=== PATIENT | male | born 1970 | race Caucasian/White ===

== ENCOUNTER 2020-03-26 21:46 | Emergency (ER) | payer BC ==
[2020-03-26] MEDS ORDERED: Lidocaine 2% 5 ML SDV IV ONE (21:47)
[2020-03-26] MEDS ORDERED: Propofol 200 MG/20 ML SDV IV ONE (21:47)
[2020-03-26] MEDS ORDERED: Diltiazem 25 MG/5 ML SDV IVPUSH ONE ×3 (22:15→22:30)
--- NOTE | 2020-03-26 22:18 | EDM.PDOC ---
ED HPI GENERAL MEDICAL PROBLEM - General Stated Complaint: AFIB Time Seen by Provider: 03/26/20 21:50 Source of Information: Reports: Patient History Limitations: Reports: No Limitations - History of Present Illness INITIAL COMMENTS - FREE TEXT/NARRATIVE: Patient presented to the ED because of palpitations. He denies any headache,dizziness, chest pain, dyspnea. He has a h/o AFIB and underwent ablation at [facility] in [place], [place] 1 year ago. Since then he never had any episode of AFIB until tonight. - Related Data Allergies Allergy/AdvReac Type Severity Reaction Status Date / Time No Known Allergies Allergy Verified 03/26/20 22:06 Home Meds: Home Meds Aspirin 81 mg PO DAILY 03/26/20 [History] Budesonide [Pulmicort Flexhaler] 2 puff IH BID 03/26/20 [History] Losartan [Cozaar] 25 mg PO DAILY 03/26/20 [History] ED ROS GENERAL - Review of Systems Review Of Systems: See Below Constitutional: Reports: No Symptoms HEENT: Reports: No Symptoms Respiratory: Reports: No Symptoms Cardiovascular: Reports: Other (palpitations) Endocrine: Reports: No Symptoms GI/Abdominal: Reports: No Symptoms : Reports: No Symptoms Musculoskeletal: Reports: No Symptoms Skin: Reports: No Symptoms ED EXAM, GENERAL - Physical Exam Exam: See Below Exam Limited By: No Limitations General Appearance: Alert, No Apparent Distress Ears: Normal External Exam, Normal Canal Nose: Normal Inspection, Normal Mucosa Throat/Mouth: Normal Inspection, Normal Lips Head: Atraumatic, Normocephalic Neck: Normal Inspection, Supple, Non-Tender Respiratory/Chest: No Respiratory Distress, Lungs Clear, Normal Breath Sounds Cardiovascular: Normal Peripheral Pulses, No Edema, Tachycardia, Irregularly Irregular GI/Abdominal: Normal Bowel Sounds, Soft, Non-Tender, No Organomegaly Back Exam: Normal Inspection, Full Range of Motion Extremities: Normal Inspection, Normal Range of Motion, Non-Tender ED CARDIOLOGY PROCEDURES - Cardioversion Time of Cardioversion: 22:45 Indication: Atrial Fibrillation with RVR Patient Counseled: Yes Informed Consent Obtained: Yes Preparation: IV Access, Supplemental Oxygen Pre-Procedure Sedation: Other (propofol) Cardioversion Energy: 100J Sync Mode: Monophasic Successful: Yes Number of Attempts: 1 Patient Condition Post Cardioversion: Improved Post Cardioversion EKG Reviewed: Yes (NSR) Course - Vital Signs Text/Narrative:: EKG/Labs was reviewed with patient and verbalized full understanding Cardizem 15 mg IV x1 Cardizem 25 mg IV x1 There was improvement in the HR from 199 to 150 after the cardizem IV Last Recorded V/S: Last Vital Signs Temp 37.0 C 03/26/20 21:46 Pulse 78 03/27/20 00:45 Resp 18 03/27/20 00:45 BP 117/84 03/27/20 00:45 Pulse Ox 97 03/27/20 00:45 - Orders/Labs/Meds Orders: Active Orders 24 hr Category Date Time Status EKG Documentation Completion [RC] ASDIRECTED Care 03/27/20 01:18 Active EKG Documentation Completion [RC] ASDIRECTED Care 03/27/20 01:19 Active Oxygen Therapy Adult [Oxygen Therapy, ED] [RC] Care 03/26/20 23:45 Active ASDIRECTED Saline Lock Insert [OM.PC] Routine Oth 03/26/20 22:05 Ordered EKG 12 Lead [EK] Routine Ther 03/26/20 21:53 Ordered EKG 12 Lead [EK] Routine Ther 03/26/20 23:53 Ordered Labs: Laboratory Tests 03/26/20 03/26/20 03/26/20 Range/Units 21:55 21:55 21:55 WBC 9.3 (4.5-12.0) X10-3/uL RBC 4.56 (4.30-5.75) x10(6)uL Hgb 14.8 (13.5-17.8) g/dL Hct 44.1 (30.0-51.3) % MCV 96.7 H (80-96) fL MCH 32.3 (27.7-33.6) pg MCHC 33.4 (32.2-35.4) g/dL RDW 13.0 (11.5-15.5) % Plt Count 251 (125-369) X10(3)uL MPV 8.0 (7.4-10.4) fL Neut % (Auto) 80.3 (46-82) % Lymph % (Auto) 11.9 L (13-37) % Traverse % (Auto) 6.5 (4-12) % Eos % (Auto) 1 (1.0-5.0) % Baso % (Auto) 0 (0-2) % Neut # (Auto) 7.5 (1.6-8.3) # Lymph # (Auto) 1.1 (0.6-5.0) # Traverse # (Auto) 0.6 (0.0-1.3) # Eos # (Auto) 0.1 (0.0-0.8) # Baso # (Auto) 0.0 (0.0-0.2) # Sodium 143 (135-145) mmol/L Potassium 3.8 (3.5-5.3) mmol/L Chloride 107 (100-110) mmol/L Carbon Dioxide 29 (21-32) mmol/L BUN 17 (7-18) mg/dL Creatinine 1.2 (0.70-1.30) mg/dL Est Cr Clr Drug Dosing 82.63 mL/min Estimated GFR (MDRD) > 60 (>60) BUN/Creatinine Ratio 14.2 (9-20) Glucose 107 (80-116) mg/dL Calcium 9.6 (8.6-10.2) mg/dL Magnesium (1.8-2.5) mg/dL Total Bilirubin 0.5 (0.1-1.3) mg/dL AST 35 H (5-25) IU/L ALT 61 H (12-36) U/L Alkaline Phosphatase 95 (56-112) IU/L Troponin I 7.4 (4.0-60.3) pg/mL Total Protein 7.3 (6.0-8.0) g/dL Albumin 4.1 (3.5-5.2) g/dL Globulin 3.2 g/dL Albumin/Globulin Ratio 1.3 //20 Range/Units 22:15 WBC (4.5-12.0) X10-3/uL RBC (4.30-5.75) x10(6)uL Hgb (13.5-17.8) g/dL Hct (30.0-51.3) % MCV (80-96) fL MCH (27.7-33.6) pg MCHC (32.2-35.4) g/dL RDW (11.5-15.5) % Plt Count (125-369) X10(3)uL MPV (7.4-10.4) fL Neut % (Auto) (46-82) % Lymph % (Auto) (13-37) % Traverse % (Auto) (4-12) % Eos % (Auto) (1.0-5.0) % Baso % (Auto) (0-2) % Neut # (Auto) (1.6-8.3) # Lymph # (Auto) (0.6-5.0) # Traverse # (Auto) (0.0-1.3) # Eos # (Auto) (0.0-0.8) # Baso # (Auto) (0.0-0.2) # Sodium (135-145) mmol/L Potassium (3.5-5.3) mmol/L Chloride (100-110) mmol/L Carbon Dioxide (21-32) mmol/L BUN (7-18) mg/dL Creatinine (0.70-1.30) mg/dL Est Cr Clr Drug Dosing mL/min Estimated GFR (MDRD) (>60) BUN/Creatinine Ratio (9-20) Glucose (80-116) mg/dL Calcium (8.6-10.2) mg/dL Magnesium 2.2 (1.8-2.5) mg/dL Total Bilirubin (0.1-1.3) mg/dL AST (5-25) IU/L ALT (12-36) U/L Alkaline Phosphatase (56-112) IU/L Troponin I (4.0-60.3) pg/mL Total Protein (6.0-8.0) g/dL Albumin (3.5-5.2) g/dL Globulin g/dL Albumin/Globulin Ratio Meds: Medications Discontinued Medications Generic Name Dose Route Start Last Admin Trade Name Freq PRN Reason Stop Dose Admin Diltiazem HCl 15 mg 03/26/20 22:15 03/26/20 22:15 Diltiazem IVPUSH 03/26/20 22:16 15 mg ONETIME ONE Administration Diltiazem HCl 10 mg 03/26/20 22:19 03/26/20 22:39 Diltiazem IVPUSH 03/26/20 22:20 Not Given ONETIME ONE Diltiazem HCl 25 mg 03/26/20 22:30 03/26/20 22:38 Diltiazem IVPUSH 03/26/20 22:31 25 mg ONETIME ONE Administration Sodium Chloride 1,000 mls @ 999 mls/hr 03/26/20 22:30 03/26/20 23:45 Normal Saline IV 999 mls/hr ASDIRECTED SHER Administration Lidocaine 2 ml 03/26/20 21:47 Xylocaine-Mpf 2% IV 03/26/20 21:48 .STK-MED ONE Propofol 120 mg 03/26/20 21:47 Diprivan 20 Ml IV 03/26/20 21:48 .STK-MED ONE Sodium Chloride 10 ml 03/26/20 22:05 03/26/20 22:51 Saline Flush FLUSH 10 ml ASDIRECTED PRN Administration Keep Vein Open Departure - Departure Time of Disposition: 00:15 Disposition: Home, Self-Care 01 Condition: Good Clinical Impression: Afib Instructions: Electrical Cardioversion, Care After, Diltiazem injection, Atrial Fibrillation, [id number] Referrals: PCP,Not In Area [Primary Care Provider] - Forms: ED Department Discharge Additional Instructions: please read discharge instructions on AFIB Follow up with your medical editor this week Continue present meds - My Orders Last 24 Hours: My Active Orders 03/26/20 21:53 EKG 12 Lead [EK] Routine 03/26/20 22:05 Saline Lock Insert [OM.PC] Routine 03/26/20 23:45 Oxygen Therapy Adult [Oxygen Therapy, ED] [RC] ASDIRECTED 03/26/20 23:53 EKG 12 Lead [EK] Routine 03/27/20 01:18 EKG Documentation Completion [RC] ASDIRECTED 03/27/20 01:19 EKG Documentation Completion [RC] ASDIRECTED - Assessment/Plan Last 24 Hours: My Active Orders 03/26/20 21:53 EKG 12 Lead [EK] Routine 03/26/20 22:05 Saline Lock Insert [OM.PC] Routine 03/26/20 23:45 Oxygen Therapy Adult [Oxygen Therapy, ED] [RC] ASDIRECTED 03/26/20 23:53 EKG 12 Lead [EK] Routine 03/27/20 01:18 EKG Documentation Completion [RC] ASDIRECTED 03/27/20 01:19 EKG Documentation Completion [RC] ASDIRECTED
[2020-03-26] MEDS ORDERED: Sodium Chloride 0.9% 1,000 ML IV SCH (22:30)
[2020-03-26] MEDS: Sodium Chloride 0.9% 10 ML Syringe FLUSH PRN ×2 (22:33→22:51)
--- NOTE | 2020-03-27 00:16 | PCM.SN.2 ---
- Free Text/Narrative Note: ANESTHESIA SERVICES Date: 03/26/2020 Time: 2331 to 2356 Dx: On Set Atrial Fibrillation Rx: Cardioversion Procedure: Emergency Cardioversion I was called to the Ed per the Ed physician request for an emergency cardioversion. Upon arrival, the patients heart rate was 176. He had an IV, ECG monitor, SpO2 monitor and NIBP monitor all in place. Risks and benefits were quickly discussed and a consent was obtained. Please see the nursing documentation for vital signs. Oxygen per nasal cannula was placed at 3 L/M and all metal was removed. Current ECG was A-Fib with RVR. I gave him total of Propofol 120 mg's with 2% Lidocaine 40 mg's slowly until loss of conscious was obtained. Cardioversion X 1 @ 100 j was delivered and he returned to NSR. He was arousable approximately 2-3 minutes later. Vitals remain stable. Post-procedure 12 lead ECG pending. He is awake and stable with discharge home pending. Thank you GARLAND Gallegos CRNA
== END 2020-03-27 00:47 | disposition home or self-care (01) ==
LOC: FB.ED 21:46
DX: I48.91 Unspecified atrial fibrillation (principal); Z79.82 Long term (current) use of aspirin; Z79.899 Other long term (current) drug therapy
CPT/HCPCS: 36415; 80053; 83735; 84484; 85025; 92960; 93005; 96374; 99285-25; J2001; J2704; J3490; J7030